=== PATIENT | male | born 1955 | race Caucasian/White ===

== ENCOUNTER 2020-01-21 18:00 | Outpatient (CLI) | payer OTHER | END 2020-01-21 18:01 | disposition home or self-care (01) | LOC: COV 18:00 | PROVIDERS: ATTEND Family Medicine | DX: R50.9 Fever, unspecified (principal); R05 Cough; R06.02 Shortness of breath; R06.2 Wheezing; R19.7 Diarrhea, unspecified | CPT/HCPCS: 81599 ==

== ENCOUNTER 2021-07-23 09:47 | Outpatient (CLI) | payer OTHER | END 2021-07-23 09:48 | disposition critical access hospital (66) | LOC: EMS 09:47 | DX: Z04.3 Encounter for examination and observation following other accident (principal); R10.9 Unspecified abdominal pain; M25.511 Pain in right shoulder; R07.81 Pleurodynia | CPT/HCPCS: A0425; A0429 ==

== ENCOUNTER 2021-07-23 10:25 | Observation (INO) | payer OTHER ==
[2021-07-23 11:02] LABS: BASOPHILS # (AUTO) 0.1 10^3/uL (0.0-0.1); BASOPHILS % (AUTO) 0.7 %; EOSINOPHILS # (AUTO) 0.1 10^3/uL (0.0-0.7); EOSINOPHILS % (AUTO) 1.4 %; HCT - HEMATOCRIT 40.3 % (42.0-52.0); HGB - HEMOGLOBIN 14.5 g/dL (14.0-18.0); LYMPHOCYTES # (AUTO) 1.6 10^3/uL (1.5-3.5); LYMPHOCYTES % (AUTO) 15.8 %; MEAN CORPUSCULAR HEMOGLOBIN 35.7 pg (27.0-31.0); MEAN CORPUSCULAR VOLUME 99.3 fL (80.0-94.0); MEAN PLATELET VOLUME 9.1 fL (7.4-11.4); MONOCYTES # (AUTO) 0.6 10^3/uL (0.0-1.0); MONOCYTES % (AUTO) 5.5 %; NEUTROPHILS # (AUTO) 7.7 10^3/uL (1.5-6.6); NEUTROPHILS % (AUTO) 76.4 %; PLT - PLATELET COUNT 245 10^3/uL (130-450); RED BLOOD COUNT 4.06 10^6/uL (4.70-6.10); RED CELL DISTRIBUTION WIDTH 12.5 % (12.0-15.0)
[2021-07-23 11:18] LABS: ALBUMIN 4.4 g/dL (3.2-5.5); ALBUMIN/GLOBULIN RATIO 1.3 (1.0-2.2); BILIRUBIN,TOTAL 0.5 mg/dL (0.2-1.0); CREATININE 1.1 mg/dL (0.6-1.2); TOTAL PROTEIN 7.9 g/dL (6.7-8.2)
[2021-07-23 11:47] LABS: BASOPHILS # (AUTO) 0.1 10^3/uL (0.0-0.1); BASOPHILS % (AUTO) 0.8 %; EOSINOPHILS # (AUTO) 0.2 10^3/uL (0.0-0.7); EOSINOPHILS % (AUTO) 1.9 %; HCT - HEMATOCRIT 39.8 % (42.0-52.0); HGB - HEMOGLOBIN 14.1 g/dL (14.0-18.0); LYMPHOCYTES # (AUTO) 1.5 10^3/uL (1.5-3.5); LYMPHOCYTES % (AUTO) 15.3 %; MEAN CORPUSCULAR HEMOGLOBIN 35.4 pg (27.0-31.0); MEAN CORPUSCULAR HGB CONC 35.4 g/dL (32.0-36.0); MEAN PLATELET VOLUME 8.9 fL (7.4-11.4); MONOCYTES # (AUTO) 0.6 10^3/uL (0.0-1.0); NEUTROPHILS # (AUTO) 7.5 10^3/uL (1.5-6.6); NEUTROPHILS % (AUTO) 75.7 %; PLT - PLATELET COUNT 235 10^3/uL (130-450); RED BLOOD COUNT 3.98 10^6/uL (4.70-6.10); RED CELL DISTRIBUTION WIDTH 12.6 % (12.0-15.0); WHITE BLOOD COUNT 9.9 x10^3/uL (4.8-10.8)
[2021-07-23 12:05] LABS: ALBUMIN 4.4 g/dL (3.2-5.5); ALBUMIN/GLOBULIN RATIO 1.3 (1.0-2.2); BILIRUBIN,TOTAL 0.6 mg/dL (0.2-1.0); CALCIUM 9.1 mg/dL (8.5-10.3); ETOH - ETHANOL 72.6 mg/dL; TOTAL PROTEIN 7.9 g/dL (6.7-8.2)
[2021-07-23] MEDS ORDERED: ONDANSETRON ODT 4 MG TABLET TL STA (12:08)
[2021-07-23] MEDS ORDERED: MORPHINE 2 MG/ML CARPUJECT IVP STA (12:08)
[2021-07-23] MEDS ORDERED: ASPIRIN 325 MG TABLET PO STA (12:09)
[2021-07-23] MEDS ORDERED: IOVERSOL 320 100 ML VIAL IVP ONE ×2 (12:25→15:16)
[2021-07-23] MEDS ORDERED: DEXAMETHASONE 10 MG/ML VIAL IV STA (13:05)
[2021-07-23] MEDS ORDERED: diphenhydrAMINE INJ 50 MG/ML VIAL IVP STA (13:06)
[2021-07-23] MEDS ORDERED: SODIUM CHLORIDE 0.9% 1,000 ML IV STA (13:33)
--- NOTE | 2021-07-23 14:45 | ED Physician Documentation ---
PD HPI SYNCOPE - Stated complaint Stated Complaint: GLF - Chief complaint Chief Complaint: Neuro - History obtained from History obtained from: Patient - Additional information Additional information: 65-year-old male presenting to the emergency department with report of syncope and right-sided chest wall pain. He is a vague historian but reports history of chronic pain as well as dyslipidemia, diabetes, and "heart problems" which he cannot elucidate further. States last night was having 5-6 drinks which is his usual. Reports usually drinks vodka. Is amnestic to any specific event but woke up on his living room floor with significant pain and inability to stand up. States that he crawled into his bed and when he woke this morning he was unable to rise secondary to pain and generalized weakness. Review of Systems Ten Systems: 10 systems reviewed and negative Constitutional: denies: Fever Cardiac: reports: Chest pain / pressure GI: reports: Abdominal Pain Musculoskeletal: denies: Neck pain Neurologic: reports: Generalized weakness PD PAST MEDICAL HISTORY - Allergies Allergies/Adverse Reactions: Allergies Allergy/AdvReac Type Severity Reaction Status Date / Time Iodinated Contrast Media Allergy Dizziness Verified 07/23/21 10:38 - Social History Does the pt smoke?: No Smoking Status: Former smoker PD ED PE NORMAL - Vitals Vital signs reviewed: Yes - General General: Alert and oriented X 3 - HEENT HEENT: Atraumatic, PERRL - Neck Neck: Supple, no meningeal sign, No JVD - Cardiac Cardiac: RRR, Other (Right-sided chest wall tenderness to palpation.) - Respiratory Respiratory: No respiratory distress - Abdomen Abdomen: Other (Right upper quadrant abdominal pain) Results - Vitals Vitals: Vital Signs - 24 hr 07/23/21 07/23/21 07/23/21 10:30 11:12 11:30 Temperature 36.9 C Heart Rate 79 76 72 Respiratory 18 17 17 Rate Blood Pressure 156/97 H 136/85 H 144/81 H O2 Saturation 97 96 98 07/23/21 07/23/21 07/23/21 12:00 12:30 13:00 Temperature Heart Rate 77 72 76 Respiratory 19 15 22 Rate Blood Pressure 158/100 H 156/95 H 130/84 H O2 Saturation 95 96 95 07/23/21 07/23/21 07/23/21 13:30 14:00 14:38 Temperature Heart Rate 72 67 64 Respiratory 16 20 17 Rate Blood Pressure 125/87 H 124/80 143/84 H O2 Saturation 95 94 96 07/23/21 15:00 Temperature Heart Rate 61 Respiratory 16 Rate Blood Pressure 143/84 H O2 Saturation 96 Oxygen O2 Source Room air - EKG (time done) 1027 Rate: Rate (enter#) (75) Rhythm: NSR [place]: Normal Intervals: Normal NM QRS: Normal Ischemia: Normal ST segments. No: Hyperacute T waves 1134 Rate: Rate (enter#) (72) Rhythm: NSR [place]: Normal Intervals: Normal NM Ischemia: Normal ST segments Compare to prior EKG: Unchanged from prior EKG - Labs Labs: Laboratory Tests 07/23/21 07/23/21 07/23/21 10:56 10:56 10:56 WBC 10.0 RBC 4.06 L Hgb 14.5 Hct 40.3 L MCV 99.3 H MCH 35.7 H MCHC 36.0 RDW 12.5 Plt Count 245 MPV 9.1 Neut # (Auto) 7.7 H Lymph # (Auto) 1.6 Bay # (Auto) 0.6 Eos # (Auto) 0.1 Baso # (Auto) 0.1 Absolute Nucleated RBC 0.00 Nucleated RBC % 0.0 Sodium 136 Potassium 3.0 L Chloride 101 Carbon Dioxide 23 Anion Gap 12.0 BUN 13 Creatinine 1.1 Estimated GFR (MDRD) 67 L Glucose 199 H Calcium 9.0 Total Bilirubin 0.5 AST 41 ALT 28 Alkaline Phosphatase 61 Total Creatine Kinase Troponin I High Sens 26.1 H* Total Protein 7.9 Albumin 4.4 Globulin 3.5 Albumin/Globulin Ratio 1.3 Lipase 62 H Nasal Adenovirus (PCR) Nasal B. parapertussis DNA (PCR) Nasal Coronavir 229E PCR Nasal Coronavir HKU1 PCR Nasal Coronavir NL63 PCR Nasal Coronavir OC43 PCR Nasal Enterovir/Rhinovir PCR Nasal Influenza B PCR Nasal Influenza A PCR Nasal Parainfluen 1 PCR Nasal Parainfluen 2 PCR Nasal Parainfluen 3 PCR Nasal Parainfluen 4 PCR Nasal RSV (PCR) Nasal B.pertussis DNA PCR Nasal C.pneumoniae (PCR) Tony Human Metapneumo PCR Nasal M.pneumoniae (PCR) Nasal SARS-CoV-2 (PCR) Ethyl Alcohol 07/23/21 07/23/21 07/23/21 11:43 11:43 13:06 WBC 9.9 RBC 3.98 L Hgb 14.1 Hct 39.8 L MCV 100.0 H MCH 35.4 H MCHC 35.4 RDW 12.6 Plt Count 235 MPV 8.9 Neut # (Auto) 7.5 H Lymph # (Auto) 1.5 Bay # (Auto) 0.6 Eos # (Auto) 0.2 Baso # (Auto) 0.1 Absolute Nucleated RBC 0.00 Nucleated RBC % 0.0 Sodium 136 Potassium 3.0 L Chloride 102 Carbon Dioxide 22 Anion Gap 12.0 BUN 13 Creatinine 1.0 Estimated GFR (MDRD) 75 L Glucose 203 H Calcium 9.1 Total Bilirubin 0.6 AST 40 ALT 28 Alkaline Phosphatase 60 Total Creatine Kinase Troponin I High Sens Total Protein 7.9 Albumin 4.4 Globulin 3.5 Albumin/Globulin Ratio 1.3 Lipase Nasal Adenovirus (PCR) NOT DETECTED Nasal B. parapertussis DNA (PCR) NOT DETECTED Nasal Coronavir 229E PCR NOT DETECTED Nasal Coronavir HKU1 PCR NOT DETECTED Nasal Coronavir NL63 PCR NOT DETECTED Nasal Coronavir OC43 PCR NOT DETECTED Nasal Enterovir/Rhinovir PCR NOT DETECTED Nasal Influenza B PCR NOT DETECTED Nasal Influenza A PCR NOT DETECTED Nasal Parainfluen 1 PCR NOT DETECTED Nasal Parainfluen 2 PCR NOT DETECTED Nasal Parainfluen 3 PCR NOT DETECTED Nasal Parainfluen 4 PCR NOT DETECTED Nasal RSV (PCR) NOT DETECTED Nasal B.pertussis DNA PCR NOT DETECTED Nasal C.pneumoniae (PCR) NOT DETECTED Tony Human Metapneumo PCR NOT DETECTED Nasal M.pneumoniae (PCR) NOT DETECTED Nasal SARS-CoV-2 (PCR) NOT DETECTED Ethyl Alcohol 72.6 07/23/21 07/23/21 13:38 13:38 WBC RBC Hgb Hct MCV MCH MCHC RDW Plt Count MPV Neut # (Auto) Lymph # (Auto) Bay # (Auto) Eos # (Auto) Baso # (Auto) Absolute Nucleated RBC Nucleated RBC % Sodium Potassium Chloride Carbon Dioxide Anion Gap BUN Creatinine Estimated GFR (MDRD) Glucose Calcium Total Bilirubin AST ALT Alkaline Phosphatase Total Creatine Kinase 369 H Troponin I High Sens 23.2 H* Total Protein Albumin Globulin Albumin/Globulin Ratio Lipase Nasal Adenovirus (PCR) Nasal B. parapertussis DNA (PCR) Nasal Coronavir 229E PCR Nasal Coronavir HKU1 PCR Nasal Coronavir NL63 PCR Nasal Coronavir OC43 PCR Nasal Enterovir/Rhinovir PCR Nasal Influenza B PCR Nasal Influenza A PCR Nasal Parainfluen 1 PCR Nasal Parainfluen 2 PCR Nasal Parainfluen 3 PCR Nasal Parainfluen 4 PCR Nasal RSV (PCR) Nasal B.pertussis DNA PCR Nasal C.pneumoniae (PCR) Tony Human Metapneumo PCR Nasal M.pneumoniae (PCR) Nasal SARS-CoV-2 (PCR) Ethyl Alcohol PD MEDICAL DECISION MAKING - ED course Complexity details: reviewed old records, reviewed results, considered differential, d/w patient ED course: Brought in by EMS from home with inability to ambulate secondary to generalized weakness and pain. Reported syncopal episode last night in which he woke up on the floor of his living room. This was after consumption of large number of alcoholic beverages. Reports history of diabetes, hypertension, dyslipidemia, cardiac history however he is a vague historian and cannot elucidate these things further. Reports that he receives his primary care from [facility] and is currently on a pain contract with the [facility] for chronic lower extremity and low back pain. Presented afebrile, otherwise hemodynamically stable. Had notable tenderness to palpation along the right side of his chest wall. Labs obtained demonstrated hypokalemia as well as a mild elevation in high-sensitivity t roponin. Initial and repeat EKGs were negative for patient's of acute cardiac ischemia.Repeat troponin was downtrending. CTA chest and CT abdomen pelvis demonstrated 2 rib fractures. His care was discussed with the hospitalist service. At this time he will be placed under observation status for further evaluation and treatment. Departure - Departure Disposition: 65 Psych Hosp/Unit DC/Xfer Clinical Impression: Syncope, Rib fractures, ETOH abuse, General weakness Condition: Fair
--- NOTE | 2021-07-23 14:54 | CT Report ---
PROCEDURE: ANGIO CHEST W/WO INDICATIONS: convern PE vs trauma to rt ribs CONTRAST: IV CONTRAST: Optiray 320 ml: 100 PO CONTRAST: *NO PO CONTRAST TECHNIQUE: After the administration of intravenous contrast, 2 mm axial images were acquired from the pulmonary apices to the posterior costophrenic angles during the arterial phase. In addition, 1 mm lung kernel and 5 mm soft tissue kernel reconstructions were performed. 3-dimensional coronal oblique maximum int ensity projection (MIP) reformats, 8 mm axial MIP, and 5 mm coronal and sagittal MPR reformats were t hen performed through the thorax. For radiation dose reduction, the following was used: automated exp osure control, adjustment of mA and/or kV according to patient size. COMPARISON: FINDINGS: Image quality: Excellent. Pulmonary arteries: Pulmonary arteries are normal in size, and demonstrate no intraluminal filling d efects to suggest central pulmonary embolism. Lungs and pleura: Dependent atelectasis. No focal consolidation. No pleural effusions or pneumothorax . Central and peripheral airways are patent. Mediastinum: Heart size is normal, without pericardial effusion. Coronary vascular calcifications. No mediastinal or hilar adenopathy. Thoracic aorta is normal in caliber and enhancement. Esophagus is normal in caliber. Small hiatal hernia. Bones and chest wall: Mildly displaced fractures of the posterior-lateral aspects of the right fifth and sixth ribs. Degenerative changes of the spine. No suspicious osseous lesion. No axillary or supra clavicular adenopathy. The thyroid is normal in size and there are no incidental findings. Abdomen: Visualized upper abdominal solid organs appear normal in the early arterial phase of enhanc ement. IMPRESSION: No evidence of pulmonary embolus. Mildly displaced fractures of the right posterior lateral right fifth and sixth ribs. No pneumothorax . Coronary vascular calcifications. Reviewed by: Emerson Euceda DO on 07/23/2021 1:53 PM PAULO Approved by: Emerson Euceda DO on 07/23/2021 1:53 PM [place] Station ID: [id number]
--- NOTE | 2021-07-23 15:01 | CT Report ---
PROCEDURE: Abdomen/Pelvis W INDICATIONS: RUQ abd pain CONTRAST: IV CONTRAST: Optiray 320 ml: 100 PO CONTRAST: *NO PO CONTRAST TECHNIQUE: After the administration of nonionic iodinated contrast, 5 mm thick sections acquired from the diaphr agms to the symphysis. 5 mm thick coronal and sagittal reformats were acquired. For radiation dose reduction, the following was used: automated exposure control, adjustment of mA and/or kV according to patient size. COMPARISON: Same-day chest CT FINDINGS: Image quality: Excellent. ABDOMEN: Lung bases: Lung bases are clear. Heart size is normal. Multivessel coronary vascular calcificatio ns. Small hiatal hernia. Mild thickening of the distal esophagus. Solid organs: Liver and spleen are normal in size and enhancement. Gallbladder Biliary system is non dilated. Pancreas enhances normally. No adrenal nodules. Kidneys demonstrate normal size an d enhancement, without hydronephrosis. Subtle cortical hypodensity within the superior pole of the r ight kidney may represent cyst versus exophytic left renal trauma/infection. Subcentimeter cyst too s mall to further characterize within the superior pole of the left kidney likely represents a simple c yst. Peritoneum and bowel: Bowel loops demonstrate normal wall thickness and caliber. Left colon diverti cula. No evidence of diverticulitis. No free fluid or air. Nodes and vessels: No retroperitoneal or mesenteric adenopathy by size criteria. Aorta and inferior vena cava are normal in size. Miscellaneous: No ventral hernias. PELVIS: Genitourinary: Bladder wall thickness is normal. Miscellaneous: No inguinal hernias or adenopathy. Bones: No suspicious bony lesions. Age-appropriate degenerative changes of the spine. Previously no avery rib fractures are not included in this field of view. No vertebral body compression fractures. IMPRESSION: No acute intra-abdominal/pelvic abnormality. Diverticulosis. Coronary vascular calcifications. Reviewed by: Emerson Euceda DO on 07/23/2021 1:59 PM PAULO Approved by: Emerson Euceda DO on 07/23/2021 1:59 PM PAULO Station ID: [id number]
[2021-07-23 15:07] LABS: B. PARAPERTUSSIS- RESP PCR PAN NOT DETECTED; B. PERTUSSIS- RESP PCR PANEL NOT DETECTED; C. PNEUMONIAE- RESP PCR PANEL NOT DETECTED; CORONAVIRUS 229E-RESP PCR NOT DETECTED; CORONAVIRUS HKU1-RESP PCR NOT DETECTED; CORONAVIRUS NL63-RESP PCR NOT DETECTED; CORONAVIRUS OC43-RESP PCR NOT DETECTED; HUMAN METAPNEUMOVIRUS NOT DETECTED; INFLUENZA A- RESP PCR PANEL NOT DETECTED; INFLUENZA B - RESP PCR PANEL NOT DETECTED; M. PNEUMONIAE- RESP PCR PANEL NOT DETECTED; PARAINFLUENZA VIRUS 1 NOT DETECTED; PARAINFLUENZA VIRUS 2 NOT DETECTED; PARAINFLUENZA VIRUS 3 NOT DETECTED; PARAINFLUENZA VIRUS 4 NOT DETECTED; RHINOVIRUS/ENTEROVIRUS NOT DETECTED; RSV- RESP PCR PANEL NOT DETECTED; SARS-CoV-2 -RESP PCR PANEL NOT DETECTED
[2021-07-23] MEDS ORDERED: ONDANSETRON ODT 4 MG TABLET TL PRN (15:45)
[2021-07-23] MEDS ORDERED: ACETAMINOPHEN 325 MG TABLET PO PRN (15:45)
[2021-07-23] MEDS ORDERED: ONDANSETRON 4 MG/2 ML VIAL IVP PRN (15:45)
[2021-07-23] MEDS ORDERED: SODIUM CHLORIDE FLUSH 0.9% 10 ML SYRINGE IVP PRN (15:45)
[2021-07-23] MEDS ORDERED: oxyCODONE 5 MG TABLET PO PRN (15:45)
--- NOTE | 2021-07-23 16:01 | HISTORY & PHYSICAL EXAMINATION ---
Chief Complaint - Chief Complaint Chief Complaint: fall with head trauma History of Present Illness - Admitted From Admitted From:: home via EMS - History Obtained From Records Reviewed: Janusz History obtained from: in ER and patient Exam Limitations: none - History of Present Illness HPI Comment/Other: He is an alcohol drinker that drinks almost every night. Sometimes up to a dozen drinks of vodka lately, sometimes not. He feels that this is not excessive and that the medical establishment is incorrect in their assessment of alcohol abuse. Last night he thinks that he must of fallen and landed on his shoulder. The ER doctor did not report a blow to the head but the patient tells me he obviously "hit his head". But he can't give a distinct history of mechanical fall or not. When he woke up this morning he was in a lot of pain and he got himself up off the floor and went to bed. When he woke up again later in the morning his shoulder hurts so badly and his ribs were killing him so he decided to come to the emergency room via EMS. He denies any chest pain, palpitations, orthopnea. He really cannot give a history of the syncope because he was intoxicated when it happened. He was evaluated in the emergency room where temperature was 36.9. Heart rate 79. Blood pressure 156/97. Respirations 18 and 97% on room air. He is a morbidly obese gentleman at 112 kg and 6 foot tall. Telemetry shows sinus rhythm as does EKG. On examination he has right-sided chest wall tenderness to palpation with right upper quadrant abdominal pain. Normal bowel sounds. CT of the abdomen was done and there is no findings. Chest and thorax CTA was negative for PE. He has a mildly displaced fracture of the posterior lateral aspect of the right fifth and sixth ribs. Small hiatal hernia. Spleen and liver are okay. Potassium is low at 3.0. Liver enzymes are normal. Troponin #1 is 26.1. Troponin #2 is 23.2. CK is 369. Random glucose 203. CBC is normal other than macrocytosis. Talk screen has an alcohol level of 72.6. Because he technically has syncope, the emergency room provider would like us to admit him for syncope evaluation. the patient himself denies syncope and tells me "you are mistaken" when we dicuss his reason for observation. Review of systems he has chronic daily chest pain. He says if he does not get his oral nitrate pills the chest pain will happen and he will "pass out". Seen by cardiology and they have told him that "nothing is wrong with you". The last time he saw them was in the early . Nevertheless his primary care provider has given him continued nitroglycerin and isosorbide for his chest pain. He has chronic daily diarrhea that requires loperamide. He also takes oxycodone 10 mg 4 times a day for chronic back pain. He is disabled. He has not worked since a back injury in 1996. History - Past Medical History Cardiovascular: reports: Hypertension, High cholesterol, Angina Respiratory: reports: None Neuro: reports: None Endocrine/Autoimmune: reports: Type 2 diabetes GI: reports: Chronic diarrhea : reports: None HEENT: reports: Chronic vision loss Psych: reports: Other (A mental disorder for which he takes Geodon, bupropion,) Musculoskeletal: reports: Chronic back pain Derm: reports: None - Family & Social History Family History Comment/Other: Mom at age 82 of sudden . She ate lunch and was found later. Dad at age 87 of old age. No illness that he can think of. 1 brother. Estranged. Does not know him. 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 No children. Living arrangement: At home Living Situation: Alone Social History Notes: Started smoking at the age of 12. Stopped smoking 20 years ago. Was up to 3 packs/day. Was drinking 6 beers a day and has switched to vodka because it is more concentrated and can drink anywhere between 6-12 drinks a day of vodka. He is not . He said that he found his girlfriend in bed with someone else. He starts crying again with that topic. Was never . Never had children. He is estranged from his only brother and has never spoken to him since his mother . 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 He is on so security disability and disability he says - Substance History Use: Uses substance without health or social issues: Alcohol Use Issues: Intoxication Abuse: Recurrent use of substance despite neg consequences: Alcohol Abuse Issues: Perceptual Disturbance Dependence: Experiences withdrawal or developed tolerances: NONE - POLST Patient has POLST: No POLST Status: Full Code Meds/Allgy - Home Medications Home Medications: Ambulatory Orders Medication Instructions Recorded Confirmed Albuterol Sulf [Ventolin Hfa 5 puffs INH BID 07/23/21 07/23/21 Inhaler] Atenolol [Tenormin] 100 mg PO DAILY 07/23/21 07/23/21 Fluoxetine HCl [Prozac] 60 mg PO DAILY 07/23/21 07/23/21 Imatinib Mesylate [Gleevec] 400 mg PO DAILY 07/23/21 07/23/21 Isosorbide Mononitrate [Isosorbide 360 mg PO DAILY 07/23/21 07/23/21 Mononitrate ER] Loperamide [Imodium] 2 mg PO QID PRN 07/23/21 07/23/21 Meclizine HCl [Motion Sickness] 25 mg PO DAILY PRN 07/23/21 07/23/21 Nitroglycerin [Nitrostat] 0.4 mg SL Q5MIN PRN 07/23/21 07/23/21 Potassium Chloride 10 meq PO DAILY 07/23/21 07/23/21 buPROPion HCL [Bupropion HCl] 150 mg PO BID 07/23/21 07/23/21 glyBURIDE [Glyburide] 2.5 mg PO BID 07/23/21 07/23/21 hydroCHLOROthiazide [Hydrodiuril] 25 mg PO DAILY 07/23/21 07/23/21 oxyCODONE [Roxicodone] 10 mg PO Q6H PRN 07/23/21 07/23/21 ziprasidone HCL [Geodon] 80 mg PO BID 07/23/21 07/23/21 - Allergies Allergies/Adverse Reactions: Allergies Allergy/AdvReac Type Severity Reaction Status Date / Time Iodinated Contrast Media Allergy Dizziness Verified 07/23/21 10:38 acetaminophen [From Vicodin] AdvReac Nausea Verified 07/23/21 17:04 hydrocodone [From Vicodin] AdvReac Nausea Verified 07/23/21 17:04 Review of Systems - Other Findings Other Findings: Unable to obtain. He states he does not want to speak to me any further after we discussed his social history. Prior Level of Functionality: He lives alone in his own house. Has difficulty ambulating because of chronic back pain. Has neighbors and friends but no power of civil litigation attorney and is disabled Exam - Vital Signs Reviewed Vital Signs: Yes Vital Signs: Vital Signs x48h Temp Pulse Resp BP Pulse Ox 07/23/21 15:30 60 18 138/41 H 95 07/23/21 15:00 61 16 143/84 H 96 07/23/21 14:38 64 17 143/84 H 96 07/23/21 14:00 67 20 124/80 94 07/23/21 13:30 72 16 125/87 H 95 07/23/21 13:00 76 22 130/84 H 95 07/23/21 12:30 72 15 156/95 H 96 07/23/21 12:00 77 19 158/100 H 95 07/23/21 11:30 72 17 144/81 H 98 07/23/21 11:12 76 17 136/85 H 96 07/23/21 10:30 36.9 C 79 18 156/97 H 97 - Physical Exam General Appearance: positive: No acute distress, Alert, Other (During exam he alternates between being suddenly tearful and crying when he discusses his mother's ,his girlfriends infidelity, his back injury resulting in disability and then getting angry when he is told that he may alcohol abuse problems and throws me out) Eyes Bilateral: positive: PERRL, EOMI ENT: positive: No signs of dehydration Neck: positive: No JVD. negative: Stiff neck Respiratory: positive: No respiratory distress, Other (Painful over the rib cage where he broke his ribs, pleuritic). negative: Wheezes, Rales, Rhonchi Cardiovascular: positive: Regular rate & rhythm. negative: Gallop/S4, Friction rub Abdomen: positive: Non-tender, No organomegaly, Nml bowel sounds, No distention Skin: positive: Warm, Dry Extremities: positive: Pedal edema (Mild). negative: Full ROM (His right shoulder hurts) Neurologic/Psychiatric: positive: Oriented x3, CN's nml (2-12), Motor nml, Slurred/abnml speech (Stuttering off and on) Conclusion/Plan - Problem List (1) Syncope Conclusion/Plan: The ER MD gives a history of alcohol intoxication, chronic alcohol abuse, this scenario is most likely that he did pass out due to drinking. But the patient denies passing out. He is angry that that is in his history. He wants me to correct that and states that he just fell and hit his head and he does not remember anything after that. Broke his ribs. Regain consciousness this morning. Alcohol level is still quite elevated. Nevertheless admit for syncope of unknown etiology with observation. We do not have MRI or echocardiogram on the weekend. Plan: Telemetry observation CT of head Qualifiers: Syncope type: unspecified Qualified Code(s): R55 - Syncope and collapse (2) Rib fractures Conclusion/Plan: He has 2 rib fractures. I did run the case past Dr. Park who is on-call for general surgery. He is not a true trauma. He usually takes oxycodone 4 times a day and that will be resumed. Incentive spirometry ordered. Encourage the patient to walk in the room. Qualifiers: Encounter type: initial encounter (3) ETOH abuse Conclusion/Plan: Chronic by description. Current alcohol level still shows acute intoxication. Plan: Banana bag Hopefully he will be able to be observed for short duration so he does not go through withdrawal (4) Chronic diarrhea Conclusion/Plan: He usually takes loperamide as needed. That will be resumed. (5) Chronic pain Conclusion/Plan: Patient is on oxycodone 10 mg 4 times a day. He is asking to resume that. Qualifiers: Chronic pain type: chronic pain syndrome Qualified Code(s): G89.4 - Chronic pain syndrome (6) Chronic chest pain Conclusion/Plan: He is wanting to make sure that his usual nitroglycerin and isosorbide is ordered. That will be ordered. (7) Hypokalemia Conclusion/Plan: Oral supplementation. Recheck in the morning. (8) Type 2 diabetes mellitus Conclusion/Plan: Resume his usual medications from home. Those would include glyburide. Qualifiers: Diabetes mellitus manager terminal insulin use: without manager terminal use Diabetes mellitus complication status: without complication Qualified Code(s): E11.9 - Type 2 diabetes mellitus without complications - Lab Results Lab results reviewed: Yes Fish Bones: 07/23/21 11:43 07/23/21 11:43 - Diagnostic Imaging Results Diagnostic Imaging Results: positive: Final report reviewed Diagnostic Imaging Results Comments: Angiogram of chest is negative for PE. Rib fractures identified. No pneumonia. Abdomen pelvis CT with clear lung bases. Multivessel coronary artery calcifications. Small hiatal hernia. Liver and spleen normal. Pancreas enhances normally. Subcortical hypodensity within the superior pole of the right kidney may represent cyst versus exophytic left renal trauma/infection. - EKG Results EKG Interpreted Independently: No Core Measures - Anticipated LOS I expect patient to be DC'd or transferred within 96 hours.: Yes - DVT/VTE - Prophylaxis VTE/DVT Device ordered at admit?: Yes
[2021-07-23] MEDS ORDERED: MULTIVITAMIN 10 ML, THIAMINE INJ 100 MG, FOLIC ACID INJ 1 MG in D5.45NS W/20 MEQ KCL 1,... IV SCH (17:00)
[2021-07-23] MEDS: SODIUM CHLORIDE FLUSH 0.9% 10 ML SYRINGE IVP SCH ×2 (18:48→23:36)
[2021-07-23] MEDS ORDERED: LOPERAMIDE 2 MG CAPSULE PO PRN (18:56)
[2021-07-23] MEDS ORDERED: NITROGLYCERIN SL 0.4 MG TABLET SL PRN (18:56)
[2021-07-23] MEDS ORDERED: MECLIZINE 12.5 MG TABLET PO PRN (20:47)
--- NOTE | 2021-07-23 20:57 | CT Report ---
PROCEDURE: HEAD WO INDICATIONS: fall and hit his head TECHNIQUE: Noncontrast 4.5 mm thick angled axial sections acquired from the foramen magnum to the vertex. For r adiation dose reduction, the following was used: automated exposure control, adjustment of mA and/or kV according to patient size. COMPARISON: None. FINDINGS: Image quality: There is motion artifact limiting evaluation. CSF spaces: Basal cisterns are patent. There is mild cerebral volume loss of prominence of the ventr icles and sulci. Brain: No definite intracranial hemorrhage, mass, mass effect. Powell-white matter interface is preser tiera. Skull and face: Calvarium and visualized facial bones are intact, without suspicious lesions. Sinuses: Visualized sinuses and mastoids are clear. IMPRESSION: 1. No definite acute intracranial abnormality. 2. Mild cerebral volume loss. Reviewed by: Az Munguia MD on 07/23/2021 8:56 PM PDT Approved by: Az uMnguia MD on 07/23/2021 8:56 PM PDT Station ID: [id number]
[2021-07-23] MEDS ORDERED: BUPROPION HCL 75 MG PO SCH (21:00)
[2021-07-23] MEDS ORDERED: buPROPion SR 150 MG TABLET PO SCH (22:00)
[2021-07-23] MEDS: oxyCODONE 5 MG TABLET PO PRN (22:22)
[2021-07-23] MEDS: ZIPRASIDONE 20 MG CAPSULE PO SCH (22:23)
--- NOTE | 2021-07-24 07:12 | PHARMACY PROGRESS NOTE ---
- Best Possible Medication History Admit Date and Time: 07/23/21 1545 Processed by: Pharmacy Medication History completed: Yes Patient Interview: Completed Secondary Source(s): Written medication list As the person ultimately responsible for medication therapy, providers are able to order a medication from an existing home medication list in [facility] via the "Reconcile Routine" prior to Confirmation of that medication by office support. Such practice is discouraged except when the physician, in their clinical judgment, deems that a medical need exists for a medication without regard to previous use.
[2021-07-24] MEDS ORDERED: glyBURIDE 2.5 MG TABLET PO SCH (08:00)
[2021-07-24 08:33] VITALS: BP 133/75
[2021-07-24] MEDS: ZIPRASIDONE 20 MG CAPSULE PO SCH (08:45)
[2021-07-24] MEDS: oxyCODONE 5 MG TABLET PO PRN (08:45)
[2021-07-24] MEDS: SODIUM CHLORIDE FLUSH 0.9% 10 ML SYRINGE IVP SCH (08:50)
[2021-07-24] MEDS ORDERED: POTASSIUM CHLORIDE 10 MEQ CAPSULE PO SCH (09:00)
[2021-07-24] MEDS ORDERED: buPROPion SR 150 MG TABLET PO SCH (09:00)
[2021-07-24] MEDS ORDERED: atenoloL 25 MG TABLET PO SCH (09:00)
[2021-07-24] MEDS ORDERED: hydroCHLOROthiazide 25 MG TABLET PO SCH (09:00)
[2021-07-24] MEDS ORDERED: ISOSORBIDE MONONITRATE ER 30 MG TABLET PO SCH (09:00)
[2021-07-24] MEDS ORDERED: FLUoxetine 10 MG CAPSULE PO SCH (09:00)
--- NOTE | 2021-07-24 09:22 | Discharge Plan ---
Discharge Plan Problem Reviewed?: Yes Disposition: Home, Self Care Condition: Fair Diet: Regular Activity Restrictions: Activity as Tolerated Shower Restrictions: No Driving Restrictions: Yes (no driving until MRI or ECHO done) Health Concerns: You presented to the emergency room with an episode of loss of consciousness. You think that you fell and hit your head. It was unclear. You then crawled to bed and went to sleep. When you woke up you had severe chest wall pain. You came to the emergency room with this and we found you to have rib fractures. We did do a CT scan of your abdomen, chest, and had to make sure there were no other things such as stroke, or internal bleeding. There were not. Because it is a loss of consciousness, you will need further outpatient follow-up with your primary care provider from the [place]. Plan of Treatment: 1. Please see Dr. Blount in the next [address] Blount will need to do an MRI of your head, and an echocardiogram of your heart to complete work-up for loss of consciousness. Care Goals: To remain independent in your home without further loss of consciousness Assessment: Patient states he understands care goals and will follow through No Smoking: If you smoke, Please STOP! Call for help. Follow-up with: Raphael Blount MD [Primary Care Provider] -
--- NOTE | 2021-07-25 22:11 | DISCHARGE SUMMARY ---
"Discharge Summary Admit Date: 07/23/21 Discharge Date: 07/24/21 Discharging Provider: Krystal Parra MD Primary Care Provider: MD Jose Alejandro @ [facility] Code Status: Attempt Resuscitation Condition at Discharge: Fair Discharge Disposition: 01 Home, Self Care - DIAGNOSES Discharge Diagnoses with Status of Each Condition: 1. Syncope Acute alcohol intoxication 3. Rib fractures 4. Alcohol abuse 5. Chronic diarrhea 6. Chronic pain 7. Chronic chest pain 8. Hypokalemia 9. Type 2 diabetes mellitus, without long-term use of insulin, without complications - HPI History of Present Illness: Normal with chronic pain syndrome with chronic opioid use, chronic use of alcohol that he feels is not alcohol abuse even if it is between 6-12 drinks a day, who lost consciousness. Ended up hitting his head he tells me. Did not tell that to the ER doctor. When he regained consciousness he crawled to bed and lay there and went to sleep. When he woke up he was in enough pain that he came to the emergency room. He is found to have rib fractures. Because the ER doctor was worried about syncope he was placed under observation for syncope telemetry. I did tell the ER doctor there is no MRI or echo available. - CONSULTS | PROCEDURES Procedures: 1. Chest thorax CT angiogram. No evidence of pulmonary embolus. Mildly displaced fractures of right posterior lateral right fifth and sixth ribs. No pneumothorax. 2. Abdomen pelvis CT with no acute intra-abdominal/pelvic abnormality. Diver ticulosis was present. Coronary vascular calcification present. 3. Head CT was without definite acute intracranial abnormality. Mild cerebral volume loss. - HOSPITAL COURSE Hospital Course: Patient was watched overnight with telemetry. No arrhythmias noted. I have asked him to please follow-up with his primary care provider at the [facility] to make sure he gets an MRI and echo since there is a diagnosis of syncope. I also postulated that he may have passed out due to alcohol intoxication and he was quite indignant at the. There was emotional lability during his admission exam.Potassium was low at 3.0 on admission. Troponin #1 was 26. Troponin #2 is 23. Ethyl alcohol level 72.Potassium has been supplemented overnight. And the patient was supplemented again before discharge. At discharge, emotional lability had resolved. He was alert, oriented, eating breakfast. Still hurt over his rib cage where he broke his ribs with a little bit of pleurisy with it. Temperature was 36.5. Heart rate 58. Blood pressure 133/75. Respirations 22 and he is 98% saturated on room air. He is 6 foot tall and weighs 118 kg. Neck was supple. Pupils reactive. No facial asymmetry. Speech was normal. Oral mucosa was moist. Lungs were clear to auscultation and percussion. PMI is normally placed. Abdomen was obese, soft, nontender. Extremities were without edema. He did move slowly getting out of bed and walking to the bathroom but was able to do so without any assistance. As such he was discharged in stable condition when I did ask him to follow-up with his primary care provider if you just sound [facility]. - ALLERGIES Allergies/Adverse Reactions: Allergies Allergy/AdvReac Type Severity Reaction Status Date / Time Iodinated Contrast Media Allergy Dizziness Verified 07/23/21 10:38 acetaminophen [From Vicodin] AdvReac Nausea Verified 07/23/21 17:04 hydrocodone [From Vicodin] AdvReac Nausea Verified 07/23/21 17:04 - MEDICATIONS Home Medications: Ambulatory Orders Medication Instructions Recorded Confirmed Albuterol Sulf [Ventolin Hfa 5 puffs INH BID 07/23/21 07/23/21 Inhaler] Atenolol [Tenormin] 100 mg PO DAILY 07/23/21 07/23/21 Fluoxetine HCl [Prozac] 60 mg PO DAILY 07/23/21 07/23/21 Imatinib Mesylate [Gleevec] 400 mg PO DAILY 07/23/21 07/23/21 Isosorbide Mononitrate [Isosorbide 360 mg PO DAILY 07/23/21 07/23/21 Mononitrate ER] Loperamide [Imodium] 2 mg PO QID PRN 07/23/21 07/23/21 Meclizine HCl [Motion Sickness] 25 mg PO DAILY PRN 07/23/21 07/23/21 Nitroglycerin [Nitrostat] 0.4 mg SL Q5MIN PRN 07/23/21 07/23/21 Potassium Chloride 10 meq PO DAILY 07/23/21 07/23/21 buPROPion HCL [Bupropion HCl] 150 mg PO BID 07/23/21 07/23/21 glyBURIDE [Glyburide] 2.5 mg PO BID 07/23/21 07/23/21 hydroCHLOROthiazide [Hydrodiuril] 25 mg PO DAILY 07/23/21 07/23/21 oxyCODONE [Roxicodone] 10 mg PO Q6H PRN 07/23/21 07/23/21 ziprasidone HCL [Geodon] 80 mg PO BID 07/23/21 07/23/21 - LABS Result Diagrams: 07/23/21 11:43 07/23/21 11:43"
== END 2021-07-24 10:54 | disposition home or self-care (01) ==
LOC: EDUNIT# → ED 10:25 → MS2 15:45
PROVIDERS: ADMIT Specialist; ATTEND Specialist
DX: R55 Syncope and collapse (principal); F10.129 Alcohol abuse with intoxication, unspecified; E87.6 Hypokalemia; Y90.3 Blood alcohol level of 60-79 mg/100 ml; S22.41XA Multiple fractures of ribs, right side, initial encounter for closed fracture; W19.XXXA Unspecified fall, initial encounter; Y92.019 Unspecified place in single-family (private) house as the place of occurrence of the external cause; R10.11 Right upper quadrant pain; E11.9 Type 2 diabetes mellitus without complications; I10 Essential (primary) hypertension; E78.00 Pure hypercholesterolemia, unspecified; I25.119 Atherosclerotic heart disease of native coronary artery with unspecified angina pectoris; F99 Mental disorder, not otherwise specified; G89.4 Chronic pain syndrome; M54.9 Dorsalgia, unspecified; M79.606 Pain in leg, unspecified; Z20.822 Contact with and (suspected) exposure to COVID-19; K52.9 Noninfective gastroenteritis and colitis, unspecified; E66.01 Morbid (severe) obesity due to excess calories; Z68.35 Body mass index [BMI] 35.0-35.9, adult; Z73.6 Limitation of activities due to disability; Z87.891 Personal history of nicotine dependence; Z79.51 Long term (current) use of inhaled steroids; Z79.84 Long term (current) use of oral hypoglycemic drugs; Z79.899 Other long term (current) drug therapy
CPT/HCPCS: 0202U; 36415; 70450; 71275; 74177; 80053; 80320; 82550; 83690; 84484; 85025; 93005; 96361; 96365; 96366; 96375; 99284; 99285; A9270; G0378; J1200; J3411; Q0162; Q9967